=== PATIENT | female | born 1995 | race Caucasian/White ===

== ENCOUNTER 2017-02-14 19:39 | Emergency (ER) | payer MEDICAID ==
[~2017-02-14] VITALS: Ht 160 cm; Wt 94.8 kg
[2017-02-14 23:11] VITALS: BP 120/85
== END 2017-02-14 23:11 | disposition home or self-care (01) ==
LOC: ED 19:39
DX: G43.909 Migraine, unspecified, not intractable, without status migrainosus (principal)
CPT/HCPCS: J2765; J3030

== ENCOUNTER 2017-04-21 09:30 | Emergency (ER) | payer MEDICAID ==
[~2017-04-21] VITALS: Ht 160 cm; Wt 93.0 kg
[2017-04-21 09:32] VITALS: Ht 160 cm; Wt 93.0 kg
[2017-04-21 10:09] LABS: BASOPHIL % 0.6 % (0-2); PLATELET COUNT 247 x10^3mcL (130-400); RED CELL DISTRIBUTION WIDTH 13.6 % (11.5-14.5)
[2017-04-21 10:17] LABS: CALCIUM 9.1 mg/dL (8.5-10.1); CHLORIDE SERUM 106 mmol/L (98-107); CREATININE SERUM 0.7 mg/dL (0.6-1.0); GFR1 > 60 mL/min; GLUCOSE SERUM 84 mg/dL (74-106); POTASSIUM SERUM 4.1 mmol/L (3.5-5.1); SODIUM SERUM 140 mmol/L (136-145)
[2017-04-21 10:21] LABS: ALBUMIN 3.7 g/dL (3.4-5.0); ALKALINE PHOSPHATASE 89 U/L (46-116); ALT/SGPT 16 U/L (14-59); AMYLASE 57 U/L (25-115); AST/SGOT 21 U/L (15-37); LIPASE 139 IU/L (73-393); TOTAL PROTEIN, SERUM 7.3 g/dL (6.4-8.2)
[2017-04-21 11:05] LABS: microscopic required? YES; urine erythrocyte 1+ (NEGATIVE)
[2017-04-21 12:52] VITALS: BP 133/65
== END 2017-04-21 12:52 | disposition home or self-care (01) ==
LOC: ED 09:30
PROVIDERS: Emergency Medicine
DX: R10.31 Right lower quadrant pain (principal); R82.71 Bacteriuria
CPT/HCPCS: 83880; J2405; J3010; J7030